=== PATIENT | female | born 1990 | race Caucasian/White ===

== ENCOUNTER 2016-08-10 22:23 | Emergency (ER) | payer BC, OTHER ==
[~2016-08-10] VITALS: Ht 165.1 cm; Wt 89.5 kg
[2016-08-10 22:33] VITALS: Ht 165.1 cm; Wt 89.5 kg
--- NOTE | 2016-08-11 01:01 | ERD ---
ER Documentation Chief Complaint Date/Time DATE: 08/11/16 TIME: 00:58 Chief Complaint ABD PAIN X 4 DAYS WITH PELVIC CRAMPING. HX IRREGULAR PERIODS HPI 26 year female presents here in emergency department for complaints of pelvic pain for 4 days. Patient describes the pain as cramping pain, 4/10 scale, not better or worse with anything. Patient also is complaining of left upper quadrant abdominal pain, sharp pain, succession scale, accompanied with nausea and acid reflux. Patient denies hematuria or dysuria. Patient denies any fever or chills. Patient denies any vaginal itching or discharge. Patient has episodes of constipation and diarrhea for the last few days. ROS All systems reviewed and are negative except as per history of present illness. Medications Home Meds Reported Medications [none] Unknown Strength No Conflict Check 08/11/16 Allergies Allergies: Coded Allergies: No Known Allergy (Unverified , 08/11/16) PMhx/Soc Medical and Surgical Hx: pt denies Medical Hx, pt denies Surgical Hx History of Surgery: No Anesthesia Reaction: No Hx Neurological Disorder: No Hx Respiratory Disorders: No Hx Cardiac Disorders: No Hx Psychiatric Problems: No Hx Miscellaneous Medical Probl: No Hx Alcohol Use: No Hx Substance Use: No Hx Tobacco Use: No Smoking Status: Never smoker FmHx Family History: No coronary disease, No diabetes, No other Physical Exam Vitals Vital Signs Date Time Temp Pulse Resp B/P Pulse Ox O2 Delivery O2 Flow Rate FiO2 08/10/16 22:33 97.6 94 16 133/85 97 Physical Exam GENERAL: The patient is well developed and appropriate for usual state of health, in no apparent distress. CHEST: Clear to auscultation bilaterally. There are no rales, wheezes or rhonchi. HEART: Regular rate and rhythm. No murmurs, clicks, rubs or gallops. No S3 or S4. ABDOMEN: Soft, nontender and nondistended. Good bowel sounds. No rebound or guarding. No gross peritonitis. No gross organomegaly or masses. No Hussein sign or McBurney point tenderness. BACK: No midline or flank tenderness. EXTREMITIES: Equal pulses bilaterally. There is no peripheral clubbing, cyanosis or edema. No focal swelling or erythema. Full range of motion. Grossly neurovascularly intact. NEURO: Alert and oriented. Cranial nerves 2-12 intact. Motor strength in all 4 extremities with 5/5 strength. Sensation grossly intact. Normal speech and gait. SKIN: There is no apparent rash or petechia. The skin is warm and dry. HEMATOLOGIC AND LYMPHATIC: There is no evidence of excessive bruising or lymphedema. No gross cervical, axillary, or inguinal lymphadenopathy. Result Diagram: 08/11/16 0055 08/11/16 0055 Results 24 hrs Laboratory Tests Test 08/11/16 00:55 White Blood Count 4.710^3/ul Red Blood Count 4.5810^6/ul Hemoglobin 12.8g/dl Hematocrit 40.0% Mean Corpuscular Volume 87.3fl Mean Corpuscular Hemoglobin 27.9pg Mean Corpuscular Hemoglobin Concent 32.0g/dl Red Cell Distribution Width 12.1% Platelet Count 06291^3/UL Mean Platelet Volume 8.6fl Neutrophils % 43.5% Lymphocytes % 43.8% Monocytes % 10.0% Eosinophils % 2.1% Basophils % 0.4% Nucleated Red Blood Cells % 0.0/100WBC Neutrophils # 2.010^3/ul Lymphocytes # 2.110^3/ul Monocytes # 0.510^3/ul Eosinophils # 0.110^3/ul Basophils # 0.010^3/ul Nucleated Red Blood Cells # 0.010^3/ul Urine Color LT. YELLOW Urine Clarity CLEAR Urine pH 6.5 Urine Specific [place] 1.020 Urine Ketones NEGATIVE Urine Nitrite NEGATIVE Urine Bilirubin NEGATIVE Urine Urobilinogen 0.2 E.U./dL Urine Leukocyte Esterase 1+ Urine Microscopic RBC 10-25/HPF Urine Microscopic WBC 10-25/HPF Urine Squamous Epithelial Cells MODERATE Urine Hemoglobin 2+ Urine Glucose NEGATIVE% Urine Total Protein NEGATIVE Sodium Level 137mmol/L Potassium Level 3.8mmol/L Chloride Level 105mmol/L Carbon Dioxide Level 24mmol/L Anion Gap 12 Blood Urea Nitrogen 13mg/dl Creatinine 0.65mg/dl Glucose Level 92mg/dl Calcium Level 9.4mg/dl Total Bilirubin 0.3mg/dl Direct Bilirubin 0.00mg/dl Indirect Bilirubin 0.3mg/dl Aspartate Amino Transf (AST/SGOT) 29IU/L Alanine Aminotransferase (ALT/SGPT) 39IU/L Alkaline Phosphatase 51IU/L Total Protein 7.2g/dl Albumin 4.3g/dl Globulin 2.90g/dl Albumin/Globulin Ratio 1.48 Lipase 104U/L PROCEDURE: CT of the abdomen and pelvis without contrast CLINICAL INDICATION: Abdominal pain. TECHNIQUE: Spiral CT images through the abdomen and pelvis without the use of contrast. The administered radiation dose is CTDI 14.95 and DLP 907.35. One or more of the following dose reduction techniques were used: automated exposure control, adjustment of the mA and/or kV according to patient size, or use of iterative reconstruction technique. COMPARISON: None FINDINGS: Lack of oral and intravenous contrast somewhat limits evaluation. Slight dependent atelectasis of the lung bases is seen. No pleural effusion is seen. The liver, spleen, adrenals, right kidney, and pancreas are unremarkable in appearance. There is a tiny nonobstructing stone in the lower pole of the left kidney. The gallbladder is grossly unremarkable. No biliary or pancreatic ductal dilatation is seen.. There is no evidence for bowel obstruction, free air, or abscess. The appendix is normal in appearance. there is no evidence for diverticulitis. No adenopathy or ascites is seen. IUD device is seen in place. The ovaries are grossly unremarkable. The urinary bladder is nearly empty. No bony abnormality is seen.. IMPRESSION: No definite acute abnormality of the abdomen or pelvis. Tiny nonobstructing left renal stone. IUD. RPTAT: [facility] Physician Livier Date Time Electronically viewed and signed by Physician Livier on 08/11/2016 02 :55 LE/ CC: TWAN ROBERSON [employer] Procedures/MDM Medical Decision Making: Pelvic pain most likely from urinary tract infection, low suspicion for ovarian torsion, pain is controlled at this time. Patient's left upper quadrant abdominal pain most likely can be from gastritis, can be also viral. No leukocytosis, no bandemia. No electrolyte balance. LFTs are normal. Lipase normal. There is low suspicion for abdominal emergencies at this time. Patients abdominal exam is normal at this time. Patients radiology exam does not show any abdominal emergencies at this time. There is low suspicion for appendicitis, cholecystitis, abdominal aortic aneurysms or peritonitis at this time. There is low suspicion for sepsis. Patient appears well and is hemodynamically stable. Disposition: Home. Condition: Stable Prescription omeprazole, Mylanta, ciprofloxacin, Pyridium Instructions: Patient is advised to take medications as prescribed. Patient is advised to rest, increase fluid intake and do brat diet for next 1-2 days and progress as tolerated. Patient is advised that if symptoms are worse, severe abdominal pain, uncontrolled vomiting, high fever, severe flank pain, worst signs and symptoms, to return to the emergency department immediately. Otherwise, patient can follow up with primary care doctor in 5-7 days. Departure Diagnosis: Primary Impression: Abdominal pain Abdominal location: left upper quadrant Qualified Code: R10.12 - Left upper quadrant pain Additional Impression: UTI (urinary tract infection) Urinary tract infection type: acute cystitis Hematuria presence: without hematuria Qualified Code: N30.00 - Acute cystitis without hematuria Condition: Stable Patient Instructions: Abdominal Pain, Understanding Urinary Tract Infections ( UTIs) Additional Instructions: Patient is advised to take medications as prescribed. Patient is advised to rest, increase fluid intake and do brat diet for next 1-2 days and progress as tolerated. Patient is advised that if symptoms are worse, severe abdominal pain , uncontrolled vomiting, high fever, severe flank pain, worst signs and symptoms , to return to the emergency department immediately. Otherwise, patient can follow up with primary care doctor in 5-7 days. TWAN ROBERSON NP Aug 11, 2016 01:01
[2016-08-11 01:05] LABS: ADD SCAN DIFF NO
[2016-08-11 01:07] LABS: BASOPHILS % 0.4 % (0.0-2.0); EOSINOPHILS # 0.1 10^3/ul (0.0-0.5); EOSINOPHILS % 2.1 % (0.0-7.0); HEMOGLOBIN 12.8 g/dl (12.0-16.0); LYMPHOCYTES # 2.1 10^3/ul (0.8-2.9); LYMPHOCYTES % 43.8 % (15.0-51.0); MEAN CORPUSCULAR HEMOGLOBIN 27.9 pg (29.0-33.0); MEAN CORPUSCULAR VOLUME 87.3 fl (82.0-101.0); MEAN PLATELET VOLUME 8.6 fl (7.4-10.4); MONOCYTE # 0.5 10^3/ul (0.3-0.9); NEUTROPHILS % 43.5 % (39.0-77.0); PLATELET COUNT 197 10^3/UL (140-415); RED BLOOD COUNT 4.58 10^6/ul (4.20-5.40); RED CELL DISTRIBUTION WIDTH 12.1 % (11.5-14.5); WHITE BLOOD COUNT 4.7 10^3/ul (4.8-10.8)
[2016-08-11 01:23] LABS: ALBUMIN 4.3 g/dl (3.3-4.9)
[2016-08-11 01:24] LABS: POTASSIUM 3.8 mmol/L (3.5-5.1)
[2016-08-11 01:25] LABS: CREATININE 0.65 mg/dl (0.44-1.00)
[2016-08-11 01:26] LABS: ALBUMIN/GLOBULIN RATIO 1.48; BILIRUBIN,INDIRECT 0.3 mg/dl (0-1.1); BILIRUBIN,TOTAL 0.3 mg/dl (0.2-1.3); CALCIUM 9.4 mg/dl (8.4-10.2); TOTAL PROTEIN 7.2 g/dl (6.1-8.1)
[2016-08-11 01:34] LABS: ADD UMIC YES; URINE BILIRUBIN (Dip) NEGATIVE (NEGATIVE); URINE BLOOD (Dip) 2+ (NEGATIVE); URINE COLOR LT. YELLOW (YELLOW); URINE GLUCOSE (Dip) NEGATIVE (NEGATIVE); URINE KETONES (Dip) NEGATIVE (NEGATIVE); URINE LEUKOCYTE ESTERASE (Dip) 1+ (NEGATIVE); URINE NITRITE (Dip) NEGATIVE (NEGATIVE); URINE TOTAL PROTEIN (Dip) NEGATIVE (NEGATIVE); URINE UROBILINOGEN (Dip) 0.2 E.U./dL (0.1-1.0)
[2016-08-11 01:46] LABS: SQUAMOUS EPITHELIAL CELL,UR MODERATE
--- NOTE | 2016-08-11 02:55 | RADRPT ---
PROCEDURE: CT of the abdomen and pelvis without contrast CLINICAL INDICATION: Abdominal pain. TECHNIQUE: Spiral CT images through the abdomen and pelvis without the use of contrast. The admin istered radiation dose is CTDI 14.95 and DLP 907.35. One or more of the following dose reduction te chniques were used: automated exposure control, adjustment of the mA and/or kV according to patient size, or use of iterative reconstruction technique. COMPARISON: None FINDINGS: Lack of oral and intravenous contrast somewhat limits evaluation. Slight dependent atelectasis of the lung bases is seen. No pleural effusion is seen. The liver, spleen, adrenals, right kidney, and pancreas are unremarkable in appearance. There is a tiny nonobstructing stone in the lower pole of the left kidney. The gallbladder is grossly unremark able. No biliary or pancreatic ductal dilatation is seen.. There is no evidence for bowel obstruct ion, free air, or abscess. The appendix is normal in appearance. there is no evidence for divertic ulitis. No adenopathy or ascites is seen. IUD device is seen in place. The ovaries are grossly unre markable. The urinary bladder is nearly empty. No bony abnormality is seen.. IMPRESSION: No definite acute abnormality of the abdomen or pelvis. Tiny nonobstructing left renal stone. IUD. RPTAT: [facility] Physician Livier Date Time Electronically viewed and signed by Physician Livier on 08/11/2016 02:55 LE/
[2016-08-11] MEDS ORDERED: ONDA4TAB14 PO (03:15)
[2016-08-11] MEDS ORDERED: PHEN-538 PO (03:15)
[2016-08-11] MEDS ORDERED: MAG-19 PO (03:15)
[2016-08-11] MEDS ORDERED: OMEP20CA16 PO (03:15)
[2016-08-11] MEDS ORDERED: CIPR500T4 PO (03:15)
[2016-08-11 03:28] VITALS: BP 121/82; PULSE 77; RESP 16; TEMP 97.8
== END 2016-08-11 03:29 | disposition home or self-care (01) ==
LOC: FTE 22:23
DX: R10.12 Left upper quadrant pain (principal); N30.00 Acute cystitis without hematuria; R11.0 Nausea
CPT/HCPCS: 36415; 74176; 80053; 81001; 81003; 83690; 85025